=== PATIENT | male | born 1955 | race Caucasian/White ===

== ENCOUNTER 2023-03-27 09:30 | Inpatient (IN) | payer MEDICARE ==
[~2023-03-27] VITALS: Ht 175.3 cm; Wt 76.2 kg
[2023-03-27] MEDS ORDERED: IV NS 0.9% 1,000 ML BAG IV ONE (10:00)
[2023-03-27 10:21] LABS: HEMOGLOBIN 12.6 g/dL (13.5-17.5)
[2023-03-27 10:23] LABS: BASOPHILS # (AUTO) 0.3 K/uL (0.0-0.2); BASOPHILS % (AUTO) 3.4 % (0.0-2.0); EOSINOPHILS # (AUTO) 0.1 K/uL (0.0-0.7); EOSINOPHILS % (AUTO) 0.9 % (0.0-6.0); HEMATOCRIT 40 % (39-51); LYMPHOCYTES # (AUTO) 0.4 K/uL (0.8-4.8); LYMPHOCYTES % (AUTO) 4.4 % (20.0-44.0); MEAN CORPUSCULAR HEMOGLOBIN 24 PG (26.0-33.0); MEAN CORPUSCULAR HGB CONC 32 g/dl (31.0-36.0); MEAN CORPUSCULAR VOLUME 75 fL (80-96); MONOCYTES # (AUTO) 0.9 K/uL (0.1-1.30); MONOCYTES % (AUTO) 11.5 % (2.0-12.0); NEUTROPHILS # (AUTO) 6.5 K/uL (1.8-8.9); NEUTROPHILS % (AUTO) 79.8 % (43.0-81.0); PLATELET COUNT (AUTO) 270 K/uL (150-450); RED BLOOD CELL COUNT(AUTO) 5.27 MIL/uL (4.5-6.0); RED CELL DISTRIBUTION WIDTH 17.7 % (11.5-15.0); WHITE BLOOD COUNT (AUTO) 8.2 K/uL (4.3-11.0)
[2023-03-27 10:30] LABS: ALANINE AMINOTRANSFERASE 44 U/L (12-78); ALBUMIN 3.7 g/dL (3.4-5.0); ALKALINE PHOSPHATASE 69 U/L (46-116); ASPARTATE AMINOTRANSFERASE 42 U/L (15-37); BILIRUBIN,DIRECT 0.2 mg/dL (0.0-0.2); BILIRUBIN,TOTAL 0.5 mg/dL (0.2-1.0); CALCIUM, SERUM 9.5 mg/dL (8.5-10.1); CARBON DIOXIDE 28 mmol/L (21-32); CHLORIDE 105 mmol/L (98-107); CREATININE 0.8 mg/dL (0.6-1.3); GLUCOSE 108 mg/dL (74-106); LIPASE 131 U/L (73-393); POTASSIUM 4.4 mmol/L (3.5-5.1); SODIUM SERUM 141 mmol/L (136-145); TOTAL PROTEIN, SERUM 7.6 g/dL (6.4-8.2); UREA NITROGEN, BLOOD 23 mg/dL (7-18)
[2023-03-27] MEDS ORDERED: LORAZEPAM INJ 2 MG/ML VIAL ONE ×2 (11:19→12:12)
[2023-03-27] MEDS ORDERED: LORAZEPAM INJ 2 MG/ML VIAL IV ONE ×2 (11:30→12:30)
[2023-03-27 11:57] LABS: APPEARANCE,URINE CLEAR (CLEAR); BILIRUBIN,URINE NEGATIVE (NEGATIVE); BLOOD, URINE NEGATIVE Ery/uL (NEGATIVE); COLOR,URINE YELLOW (YELLOW); KETONES,URINE TRACE mg/dL (NEGATIVE); LEUKOCYTE ESTERASE ,URINE NEGATIVE (NEGATIVE); NITRITE, URINE NEGATIVE (NEGATIVE); PROTEIN,URINE 2+ mg/dl (NEGATIVE); UGLUCOSE NEGATIVE (NEGATIVE); UROBILINOGEN,URINE 0.2 EU/dL (0.2)
[2023-03-27 12:11] LABS: ADD URINE CULTURE NO; BACTERIA,URINE None seen /HPF (None Seen); RBC,URINE 0-2 /HPF (0-2); WBC,URINE 0-2 /HPF (0-3)
[2023-03-27 12:12] LABS: SQUAMOUS EPITHELIAL CELL,UR Rare /HPF (None Seen)
[2023-03-27] MEDS ORDERED: HALOPERIDOL LACTATE INJ 5 MG/ML VIAL ONE (12:33)
[2023-03-27] MEDS ORDERED: diphenhydrAMINE HCL 50 MG/ML VIAL ONE (12:33)
[2023-03-27] MEDS ORDERED: diphenhydrAMINE HCL 50 MG/ML VIAL IV ONE (13:00)
[2023-03-27] MEDS ORDERED: HALOPERIDOL LACTATE INJ 5 MG/ML VIAL IV ONE (13:00)
[2023-03-27] MEDS ORDERED: Z GUARD REMEDY 4 OZ OINT TP PRN (22:30)
[2023-03-27] MEDS ORDERED: INSULIN REGULAR, HUMAN 100 UNIT/ML 3 ML VIAL SQ PRN (22:30)
[2023-03-27] MEDS ORDERED: ONDANSETRON HCL/PF 4 MG/2 ML VIAL IVP PRN (22:30)
[2023-03-27] MEDS ORDERED: DEXTROSE 50%-WATER 50 ML DISP.SYRIN IV PRN (22:30)
[2023-03-27] MEDS ORDERED: MAGNESIUM HYDROXIDE 30 ML UDC PO PRN (22:30)
[2023-03-27 23:00] VITALS: BP 123/66; O2SAT 100
[2023-03-27] MEDS: IV 1/2NS 1000 ML 1,000 ML IV PRN (23:04)
[2023-03-27] MEDS: methylPREDNISolone SOD SUCC 40 MG/ML VIAL IV SCH (23:05)
[2023-03-27] MEDS: ENOXAPARIN SODIUM 40 MG/0.4 ML DISP.SYRIN SQ SCH (23:06)
[2023-03-27] MEDS: ALBUTEROL FS 2.5 MG/3 ML VIAL.NEB NEB SCH (23:33)
[2023-03-27] MEDS: IPRATROPIUM NEB FS 0.5 MG/2.5 ML AMPUL.NEB NEB SCH (23:33)
[2023-03-28] VITALS (75 sets, daily range): BP systolic 79–144; BP diastolic 49–79; TEMP 97.9–100.4; O2SAT 88–100
[2023-03-28] MEDS: ALBUTEROL FS 2.5 MG/3 ML VIAL.NEB NEB SCH ×4 (01:46→19:34)
[2023-03-28] MEDS: IPRATROPIUM NEB FS 0.5 MG/2.5 ML AMPUL.NEB NEB SCH ×4 (01:46→19:34)
[2023-03-28] MEDS: methylPREDNISolone SOD SUCC 40 MG/ML VIAL IV SCH ×3 (04:58→20:58)
[2023-03-28] MEDS ORDERED: PROPOFOL 100 ML IV PRN (05:00)
[2023-03-28] MEDS: NOREPINEPHRINE 8 MG in IV NS 0.9% 242 ML IV PRN (06:31)
[2023-03-28] MEDS: PANTOPRAZOLE 40 MG TABLET.DR PO SCH (07:30)
[2023-03-28] MEDS ORDERED: BLOOD SUGAR DIAGNOSTIC 1 EACH STRIP IN SCH (07:30)
[2023-03-28 08:08] LABS: BASOPHILS % (AUTO) 0.4 % (0.0-2.0); HEMATOCRIT 39 % (39-51); HEMOGLOBIN 11.9 g/dL (13.5-17.5); LYMPHOCYTES # (AUTO) 0.6 K/uL (0.8-4.8); LYMPHOCYTES % (AUTO) 5.9 % (20.0-44.0); MEAN CORPUSCULAR HEMOGLOBIN 24 PG (26.0-33.0); MEAN CORPUSCULAR HGB CONC 30 g/dl (31.0-36.0); MEAN CORPUSCULAR VOLUME 79 fL (80-96); MONOCYTES # (AUTO) 0.6 K/uL (0.1-1.30); MONOCYTES % (AUTO) 6.4 % (2.0-12.0); NEUTROPHILS # (AUTO) 8.5 K/uL (1.8-8.9); NEUTROPHILS % (AUTO) 87.3 % (43.0-81.0); PLATELET COUNT (AUTO) 255 K/uL (150-450); RED BLOOD CELL COUNT(AUTO) 4.99 MIL/uL (4.5-6.0); RED CELL DISTRIBUTION WIDTH 18.1 % (11.5-15.0); WHITE BLOOD COUNT (AUTO) 9.7 K/uL (4.3-11.0)
[2023-03-28 08:20] LABS: CALCIUM, SERUM 8.7 mg/dL (8.5-10.1); CREATININE 0.9 mg/dL (0.6-1.3); PHOSPHORUS 5.3 mg/dL (2.5-4.9); POTASSIUM 5.1 mmol/L (3.5-5.1)
[2023-03-28 08:28] LABS: IRON, SERUM 72 ug/dl (50-175); TOTAL IRON BINDING CAPACITY 318 ug/dl (250-450)
[2023-03-28] MEDS ORDERED: DEXTROSE 50%-WATER 50 ML DISP.SYRIN IV PRN (08:30)
[2023-03-28 08:35] LABS: THYROID STIMULATING HORMONE 0.311 uIU/mL (0.358-3.74)
[2023-03-28] MEDS: PROPOFOL 100 ML IV PRN ×6 (08:53→22:27)
[2023-03-28] MEDS ORDERED: METF-440 PO (09:52)
[2023-03-28] MEDS ORDERED: GLIP5TAB13 PO (09:52)
[2023-03-28] MEDS ORDERED: TIOT18CA3 IH (09:52)
[2023-03-28] MEDS ORDERED: SIMV10TA98 PO (09:52)
[2023-03-28 11:18] LABS: AMPHETAMINE, URINE NEGATIVE (NEGATIVE); BARBITURATE, URINE NEGATIVE (NEGATIVE); BENZODIAZEPINE, URINE NEGATIVE (NEGATIVE); CANNABINOID, URINE NEGATIVE (NEGATIVE); COCCAINE, URINE NEGATIVE (NEGATIVE); OPIATE, URINE NEGATIVE (NEGATIVE); PHENCYCLIDINE SCREEN,URINE NEGATIVE (NEGATIVE)
[2023-03-28] MEDS: BLOOD SUGAR DIAGNOSTIC 1 EACH STRIP IN SCH ×3 (12:10→23:36)
[2023-03-28] MEDS: INSULIN REGULAR, HUMAN 100 UNIT/ML 3 ML VIAL SQ PRN ×2 (12:16→23:29)
[2023-03-28] MEDS ORDERED: ETOMIDATE 2 MG/ML VIAL IV ONE (13:43)
[2023-03-28] MEDS ORDERED: SUCCINYLCHOLINE CHLORIDE 20 MG/ML VIAL IV ONE (13:43)
[2023-03-28] MEDS: IV 1/2NS 1000 ML 1,000 ML IV PRN (14:38)
[2023-03-28] MEDS: ENOXAPARIN SODIUM 40 MG/0.4 ML DISP.SYRIN SQ SCH (20:59)
[2023-03-28 22:04] LABS: ABG BASE EXCESS -1.7 mmol/L; ABG PCO2 72.1 mmHg (35.0-45.0); ABG PH 7.207 (7.350-7.450); ABG TOTAL HEMOGLOBIN 13.6 G/dL (13.5-18.0); MetHb 0.3 % (0.0-1.5); O2Hb 81.2 % (94.0-97.0); SITE, ABG Left Radial; VENT MODE, BG 4 L 02
[2023-03-28 22:14] LABS: ABG BASE EXCESS -1.9 mmol/L; ABG OXYGEN SATURATION 92.8 % (92.0-98.5); ABG PH 6.994 (7.350-7.450); ABG PO2 79.9 mmHg (75.0-100.0); ABG TOTAL HEMOGLOBIN 13.6 G/dL (13.5-18.0); COHb 2.4 % (0.5-1.5); MetHb 0.3 % (0.0-1.5); O2Hb 90.3 % (94.0-97.0); SITE, ABG Right Radial
[2023-03-28 22:15] LABS: ABG BASE EXCESS -1.7 mmol/L; ABG OXYGEN SATURATION 97.5 % (92.0-98.5); ABG PCO2 77.9 mmHg (35.0-45.0); ABG PO2 110.8 mmHg (75.0-100.0); ABG TOTAL HEMOGLOBIN 12.8 G/dL (13.5-18.0); AaDO2 231.3 mmHg; COHb 1.5 % (0.5-1.5); MetHb 0.3 % (0.0-1.5); O2Hb 95.7 % (94.0-97.0); SITE, ABG Left Brachial
[2023-03-28 22:17] LABS: ABG BASE EXCESS -1.2 mmol/L; ABG OXYGEN SATURATION 97.5 % (92.0-98.5); ABG PCO2 75.5 mmHg (35.0-45.0); ABG PH 7.197 (7.350-7.450); ABG PO2 108.6 mmHg (75.0-100.0); ABG TOTAL HEMOGLOBIN 12.8 G/dL (13.5-18.0); AaDO2 236.2 mmHg; COHb 1.8 % (0.5-1.5); MetHb 0.3 % (0.0-1.5); O2Hb 95.5 % (94.0-97.0); PEEP,BG 5 cm H2O; SITE, ABG Right Radial; VT, ABG 450 mL
[2023-03-29] VITALS (64 sets, daily range): BP systolic 106–147; BP diastolic 67–81; TEMP 98.8–99.7; O2SAT 95–100
[2023-03-29] MEDS: NOREPINEPHRINE 8 MG in IV NS 0.9% 242 ML IV PRN (00:12)
[2023-03-29 01:10] LABS: HIV-1 p24 ANTIGEN NON REACTIVE (NONREACTIVE); HIV-1/2 ANTIBODY NON REACTIVE (NONREACTIVE)
[2023-03-29] MEDS: PROPOFOL 100 ML IV PRN ×7 (01:44→21:32)
[2023-03-29] MEDS: IPRATROPIUM NEB FS 0.5 MG/2.5 ML AMPUL.NEB NEB SCH ×4 (01:54→20:15)
[2023-03-29] MEDS: ALBUTEROL FS 2.5 MG/3 ML VIAL.NEB NEB SCH ×4 (01:54→20:15)
[2023-03-29] MEDS: IV 1/2NS 1000 ML 1,000 ML IV PRN ×2 (03:37→16:53)
[2023-03-29 04:55] LABS: HEMATOCRIT 37 % (39-51); HEMOGLOBIN 11.5 g/dL (13.5-17.5); LYMPHOCYTES # (AUTO) 0.7 K/uL (0.8-4.8); LYMPHOCYTES % (AUTO) 6.2 % (20.0-44.0); MEAN CORPUSCULAR HEMOGLOBIN 24 PG (26.0-33.0); MEAN CORPUSCULAR HGB CONC 31 g/dl (31.0-36.0); MEAN CORPUSCULAR VOLUME 77 fL (80-96); MONOCYTES # (AUTO) 1.3 K/uL (0.1-1.30); MONOCYTES % (AUTO) 11.9 % (2.0-12.0); NEUTROPHILS # (AUTO) 8.7 K/uL (1.8-8.9); NEUTROPHILS % (AUTO) 81.9 % (43.0-81.0); PLATELET COUNT (AUTO) 236 K/uL (150-450); RED BLOOD CELL COUNT(AUTO) 4.81 MIL/uL (4.5-6.0); RED CELL DISTRIBUTION WIDTH 17.7 % (11.5-15.0); WHITE BLOOD COUNT (AUTO) 10.6 K/uL (4.3-11.0)
[2023-03-29 05:17] LABS: CALCIUM, SERUM 8.8 mg/dL (8.5-10.1); CREATININE 0.8 mg/dL (0.6-1.3); POTASSIUM 4.5 mmol/L (3.5-5.1)
[2023-03-29] MEDS: methylPREDNISolone SOD SUCC 40 MG/ML VIAL IV SCH ×3 (05:18→20:21)
[2023-03-29] MEDS: BLOOD SUGAR DIAGNOSTIC 1 EACH STRIP IN SCH ×3 (05:57→17:41)
[2023-03-29] MEDS: INSULIN REGULAR, HUMAN 100 UNIT/ML 3 ML VIAL SQ PRN ×2 (05:58→12:30)
[2023-03-29] MEDS: PANTOPRAZOLE 40 MG TABLET.DR PO SCH (07:10)
[2023-03-29 08:13] LABS: ABG BASE EXCESS 4.5 mmol/L; ABG OXYGEN SATURATION 95.1 % (92.0-98.5); ABG PCO2 54.6 mmHg (35.0-45.0); ABG PH 7.371 (7.350-7.450); ABG PO2 80.9 mmHg (75.0-100.0); ABG TOTAL HEMOGLOBIN 12.4 G/dL (13.5-18.0); AaDO2 141.5 mmHg; COHb 1.3 % (0.5-1.5); MetHb 0.3 % (0.0-1.5); O2Hb 93.6 % (94.0-97.0); PEEP,BG 5 cm H2O; SITE, ABG Right Radial; VT, ABG 500 mL
[2023-03-29] MEDS ORDERED: GLUCERNA 1.2 1,000 ML BOTTLE NG PRN (10:00)
[2023-03-29] MEDS: ENOXAPARIN SODIUM 40 MG/0.4 ML DISP.SYRIN SQ SCH (20:21)
[2023-03-30] VITALS (42 sets, daily range): BP systolic 104–160; BP diastolic 53–93; TEMP 98.1–98.7; O2SAT 85–100
[2023-03-30] MEDS: BLOOD SUGAR DIAGNOSTIC 1 EACH STRIP IN SCH ×4 (00:57→17:10)
[2023-03-30] MEDS: INSULIN REGULAR, HUMAN 100 UNIT/ML 3 ML VIAL SQ PRN ×3 (00:58→12:13)
[2023-03-30] MEDS: PROPOFOL 100 ML IV PRN ×3 (01:09→07:13)
[2023-03-30] MEDS: IPRATROPIUM NEB FS 0.5 MG/2.5 ML AMPUL.NEB NEB SCH ×4 (01:44→19:32)
[2023-03-30] MEDS: ALBUTEROL FS 2.5 MG/3 ML VIAL.NEB NEB SCH ×4 (01:44→19:32)
[2023-03-30 03:07] LABS: HEPATITIS B CORE AB, IgM Negative (Negative)
[2023-03-30 03:46] LABS: BASOPHILS % (AUTO) 0.1 % (0.0-2.0); HEMATOCRIT 36 % (39-51); HEMOGLOBIN 11.2 g/dL (13.5-17.5); LYMPHOCYTES # (AUTO) 0.5 K/uL (0.8-4.8); LYMPHOCYTES % (AUTO) 3.7 % (20.0-44.0); MEAN CORPUSCULAR HEMOGLOBIN 24 PG (26.0-33.0); MEAN CORPUSCULAR HGB CONC 31 g/dl (31.0-36.0); MEAN CORPUSCULAR VOLUME 76 fL (80-96); MONOCYTES # (AUTO) 1.2 K/uL (0.1-1.30); MONOCYTES % (AUTO) 8.8 % (2.0-12.0); NEUTROPHILS # (AUTO) 12.4 K/uL (1.8-8.9); NEUTROPHILS % (AUTO) 87.4 % (43.0-81.0); PLATELET COUNT (AUTO) 191 K/uL (150-450); RED CELL DISTRIBUTION WIDTH 17.9 % (11.5-15.0); WHITE BLOOD COUNT (AUTO) 14.2 K/uL (4.3-11.0)
[2023-03-30 03:59] LABS: CREATININE 0.7 mg/dL (0.6-1.3); POTASSIUM 4.5 mmol/L (3.5-5.1)
[2023-03-30] MEDS: methylPREDNISolone SOD SUCC 40 MG/ML VIAL IV SCH ×3 (04:42→20:30)
[2023-03-30] MEDS: IV 1/2NS 1000 ML 1,000 ML IV PRN ×2 (06:21→18:48)
[2023-03-30] MEDS ORDERED: DC PROPOFOL WHEN EXTUBATED XX PRN (09:00)
[2023-03-30] MEDS: PANTOPRAZOLE 40 MG TABLET.DR PO SCH (09:04)
[2023-03-30 09:20] LABS: ABG OXYGEN SATURATION 93.8 % (92.0-98.5); ABG PCO2 51.2 mmHg (35.0-45.0); ABG PH 7.447 (7.350-7.450); ABG PO2 70.4 mmHg (75.0-100.0); ABG TOTAL HEMOGLOBIN 12.4 G/dL (13.5-18.0); AaDO2 155.9 mmHg; COHb 1.3 % (0.5-1.5); MetHb 0.3 % (0.0-1.5); O2Hb 92.3 % (94.0-97.0); SITE, ABG Right Radial
[2023-03-30 11:23] LABS: ABG BASE EXCESS 6.7 mmol/L; ABG OXYGEN SATURATION 90.8 % (92.0-98.5); ABG PCO2 45.9 mmHg (35.0-45.0); ABG PH 7.455 (7.350-7.450); ABG PO2 59.1 mmHg (75.0-100.0); ABG TOTAL HEMOGLOBIN 12.6 G/dL (13.5-18.0); COHb 1.3 % (0.5-1.5); MetHb 0.3 % (0.0-1.5); O2Hb 89.3 % (94.0-97.0); SITE, ABG Right Radial; VENT MODE, BG HFNC 40L 100%
[2023-03-30] MEDS: ENOXAPARIN SODIUM 40 MG/0.4 ML DISP.SYRIN SQ SCH (20:29)
[2023-03-30] MEDS: ACETAMINOPHEN 325 MG TABLET PO PRN (21:24)
[2023-03-30] MEDS: MORPHINE SULFATE INJ 2 MG/ML DISP.SYRIN IV PRN (23:44)
[2023-03-31] VITALS (31 sets, daily range): BP systolic 100–142; BP diastolic 60–88; TEMP 98.2–101; O2SAT 83–100
[2023-03-31] MEDS: LORAZEPAM INJ 2 MG/ML VIAL IV PRN ×2 (00:35→13:52)
[2023-03-31] MEDS: INSULIN REGULAR, HUMAN 100 UNIT/ML 3 ML VIAL SQ PRN ×4 (00:58→18:05)
[2023-03-31] MEDS: BLOOD SUGAR DIAGNOSTIC 1 EACH STRIP IN SCH ×4 (00:58→18:03)
[2023-03-31] MEDS: IPRATROPIUM NEB FS 0.5 MG/2.5 ML AMPUL.NEB NEB SCH ×4 (01:54→20:26)
[2023-03-31] MEDS: ALBUTEROL FS 2.5 MG/3 ML VIAL.NEB NEB SCH ×4 (01:54→20:26)
[2023-03-31] MEDS: ACETAMINOPHEN 325 MG TABLET PO PRN (04:41)
[2023-03-31] MEDS: MORPHINE SULFATE INJ 2 MG/ML DISP.SYRIN IV PRN ×4 (04:41→16:33)
[2023-03-31] MEDS: methylPREDNISolone SOD SUCC 40 MG/ML VIAL IV SCH ×3 (05:11→21:06)
[2023-03-31 05:42] LABS: BASOPHILS % (AUTO) 0.2 % (0.0-2.0); CALCIUM, SERUM 9.1 mg/dL (8.5-10.1); CREATININE 0.5 mg/dL (0.6-1.3); HEMATOCRIT 37 % (39-51); HEMOGLOBIN 11.5 g/dL (13.5-17.5); LYMPHOCYTES # (AUTO) 0.8 K/uL (0.8-4.8); LYMPHOCYTES % (AUTO) 6.3 % (20.0-44.0); MEAN CORPUSCULAR HEMOGLOBIN 24 PG (26.0-33.0); MEAN CORPUSCULAR HGB CONC 31 g/dl (31.0-36.0); MEAN CORPUSCULAR VOLUME 76 fL (80-96); MONOCYTES # (AUTO) 1.3 K/uL (0.1-1.30); MONOCYTES % (AUTO) 10.4 % (2.0-12.0); NEUTROPHILS # (AUTO) 10.5 K/uL (1.8-8.9); NEUTROPHILS % (AUTO) 83.1 % (43.0-81.0); PLATELET COUNT (AUTO) 177 K/uL (150-450); POTASSIUM 4.2 mmol/L (3.5-5.1); RED BLOOD CELL COUNT(AUTO) 4.89 MIL/uL (4.5-6.0); RED CELL DISTRIBUTION WIDTH 18.3 % (11.5-15.0); WHITE BLOOD COUNT (AUTO) 12.6 K/uL (4.3-11.0)
[2023-03-31] MEDS: PANTOPRAZOLE 40 MG TABLET.DR PO SCH (07:30)
[2023-03-31 08:26] LABS: ABG BASE EXCESS 6.4 mmol/L; ABG OXYGEN SATURATION 86.2 % (92.0-98.5); ABG PCO2 40.4 mmHg (35.0-45.0); ABG PH 7.492 (7.350-7.450); ABG PO2 50.6 mmHg (75.0-100.0); ABG TOTAL HEMOGLOBIN 12.5 G/dL (13.5-18.0); AaDO2 101.4 mmHg; COHb 1.7 % (0.5-1.5); MetHb 0.3 % (0.0-1.5); O2Hb 84.5 % (94.0-97.0); SITE, ABG Right Brachial; VENT MODE, BG nasal cannula
[2023-03-31] MEDS: NICOTINE PATCH (21MG) 21 MG PATCH.TD24 TD SCH (09:06)
[2023-03-31] MEDS: IV 1/2NS 1000 ML 1,000 ML IV PRN (13:24)
[2023-03-31] MEDS: ENOXAPARIN SODIUM 40 MG/0.4 ML DISP.SYRIN SQ SCH (21:17)
[2023-04-01] VITALS (15 sets, daily range): BP systolic 106–142; BP diastolic 67–87; TEMP 97.7–99.1; O2SAT 94–100
[2023-04-01] MEDS: BLOOD SUGAR DIAGNOSTIC 1 EACH STRIP IN SCH (00:28)
[2023-04-01] MEDS: INSULIN REGULAR, HUMAN 100 UNIT/ML 3 ML VIAL SQ PRN (00:54)
[2023-04-01] MEDS: ALBUTEROL FS 2.5 MG/3 ML VIAL.NEB NEB SCH ×4 (01:44→20:16)
[2023-04-01] MEDS: IPRATROPIUM NEB FS 0.5 MG/2.5 ML AMPUL.NEB NEB SCH ×4 (01:44→20:16)
[2023-04-01] MEDS ORDERED: INSULIN REGULAR, HUMAN 100 UNIT/ML 3 ML VIAL SQ PRN (02:00)
[2023-04-01] MEDS ORDERED: DEXTROSE 50%-WATER 50 ML DISP.SYRIN IV PRN (02:00)
[2023-04-01] MEDS: IV 1/2NS 1000 ML 1,000 ML IV PRN ×2 (03:50→22:49)
[2023-04-01] MEDS: methylPREDNISolone SOD SUCC 40 MG/ML VIAL IV SCH ×3 (04:18→21:12)
[2023-04-01] MEDS: BLOOD SUGAR DIAGNOSTIC 1 EACH STRIP VI SCH ×4 (07:46→21:15)
[2023-04-01] MEDS: NICOTINE PATCH (21MG) 21 MG PATCH.TD24 TD SCH (08:51)
[2023-04-01] MEDS: PANTOPRAZOLE 40 MG TABLET.DR PO SCH (08:51)
[2023-04-01 08:59] LABS: BASOPHILS % (AUTO) 0.3 % (0.0-2.0); HEMATOCRIT 41 % (39-51); HEMOGLOBIN 12.7 g/dL (13.5-17.5); LYMPHOCYTES # (AUTO) 0.5 K/uL (0.8-4.8); LYMPHOCYTES % (AUTO) 3.9 % (20.0-44.0); MEAN CORPUSCULAR HEMOGLOBIN 24 PG (26.0-33.0); MEAN CORPUSCULAR HGB CONC 31 g/dl (31.0-36.0); MEAN CORPUSCULAR VOLUME 76 fL (80-96); MONOCYTES # (AUTO) 0.5 K/uL (0.1-1.30); MONOCYTES % (AUTO) 4.6 % (2.0-12.0); NEUTROPHILS # (AUTO) 10.9 K/uL (1.8-8.9); NEUTROPHILS % (AUTO) 91.2 % (43.0-81.0); PLATELET COUNT (AUTO) 201 K/uL (150-450); RED BLOOD CELL COUNT(AUTO) 5.39 MIL/uL (4.5-6.0); RED CELL DISTRIBUTION WIDTH 18.5 % (11.5-15.0)
[2023-04-01 10:20] LABS: CALCIUM, SERUM 9.4 mg/dL (8.5-10.1); CREATININE 0.7 mg/dL (0.6-1.3); POTASSIUM 4.5 mmol/L (3.5-5.1)
[2023-04-01] MEDS: *INSULIN REGULAR(HUMULIN R)HUM 100 UNIT/ML VIAL SQ PRN ×3 (11:32→21:16)
[2023-04-01] MEDS: MORPHINE SULFATE INJ 2 MG/ML DISP.SYRIN IV PRN (15:07)
[2023-04-01] MEDS: GLUCERNA SHAKE 237 ML CAN PO SCH (16:31)
[2023-04-01] MEDS: ENOXAPARIN SODIUM 40 MG/0.4 ML DISP.SYRIN SQ SCH (21:14)
[2023-04-02] VITALS: BP 120/78; TEMP 97.7; O2SAT 100
[2023-04-02] MEDS: ALBUTEROL FS 2.5 MG/3 ML VIAL.NEB NEB SCH ×3 (01:25→13:19)
[2023-04-02] MEDS: IPRATROPIUM NEB FS 0.5 MG/2.5 ML AMPUL.NEB NEB SCH ×3 (01:25→13:18)
[2023-04-02 04:00] VITALS: BP 113/75; TEMP 97.5; O2SAT 100
[2023-04-02] MEDS: methylPREDNISolone SOD SUCC 40 MG/ML VIAL IV SCH ×2 (04:48→12:23)
[2023-04-02 07:14] LABS: BASOPHILS % (AUTO) 0.3 % (0.0-2.0); HEMATOCRIT 42 % (39-51); HEMOGLOBIN 12.9 g/dL (13.5-17.5); LYMPHOCYTES # (AUTO) 0.4 K/uL (0.8-4.8); LYMPHOCYTES % (AUTO) 3.2 % (20.0-44.0); MEAN CORPUSCULAR HEMOGLOBIN 23 PG (26.0-33.0); MEAN CORPUSCULAR HGB CONC 31 g/dl (31.0-36.0); MEAN CORPUSCULAR VOLUME 76 fL (80-96); MONOCYTES # (AUTO) 0.7 K/uL (0.1-1.30); MONOCYTES % (AUTO) 5.1 % (2.0-12.0); NEUTROPHILS # (AUTO) 12.5 K/uL (1.8-8.9); NEUTROPHILS % (AUTO) 91.4 % (43.0-81.0); PLATELET COUNT (AUTO) 220 K/uL (150-450); RED BLOOD CELL COUNT(AUTO) 5.52 MIL/uL (4.5-6.0); RED CELL DISTRIBUTION WIDTH 18.6 % (11.5-15.0); WHITE BLOOD COUNT (AUTO) 13.7 K/uL (4.3-11.0)
[2023-04-02 07:49] LABS: CALCIUM, SERUM 9.4 mg/dL (8.5-10.1); CREATININE 0.5 mg/dL (0.6-1.3); POTASSIUM 4.4 mmol/L (3.5-5.1)
[2023-04-02 08:00] VITALS: BP 122/78; TEMP 98; O2SAT 100
[2023-04-02] MEDS: GLUCERNA SHAKE 237 ML CAN PO SCH ×2 (08:13→16:20)
[2023-04-02] MEDS: BLOOD SUGAR DIAGNOSTIC 1 EACH STRIP VI SCH ×3 (08:13→17:30)
[2023-04-02] MEDS: NICOTINE PATCH (21MG) 21 MG PATCH.TD24 TD SCH (09:08)
[2023-04-02] MEDS: PANTOPRAZOLE 40 MG TABLET.DR PO SCH (09:08)
[2023-04-02 12:00] VITALS: BP 118/74; TEMP 98; O2SAT 100
[2023-04-02] MEDS: *INSULIN REGULAR(HUMULIN R)HUM 100 UNIT/ML VIAL SQ PRN (12:26)
[2023-04-02 14:00] VITALS: BP 118/86; TEMP 98.7; O2SAT 100
[2023-04-02] MEDS ORDERED: GUAIFENESIN/CODEINE 10 ML UDC PO PRN (15:00)
[2023-04-02] MEDS: MORPHINE SULFATE INJ 2 MG/ML DISP.SYRIN IV PRN (15:16)
[2023-04-02 16:00] VITALS: BP 116/89; TEMP 98.5; O2SAT 100
== END 2023-04-02 20:00 | DRG 208 ==
LOC: EDBD 09:36 → ER 09:36 → ICU 21:47 → TELE1 03-31 10:31
PROVIDERS: ADMIT Nurse Practitioner Family
PROC: 5A09357 Assistance with Respiratory Ventilation, Less than 24 Consecutive Hours, Continuous Positive Airway Pressure (ICD-10-PCS; 2023-03-27)
PROC: 5A1945Z Respiratory Ventilation, 24-96 Consecutive Hours (ICD-10-PCS; principal; 2023-03-28)
PROC: 0BH17EZ Insertion of Endotracheal Airway into Trachea, Via Natural or Artificial Opening (ICD-10-PCS; 2023-03-28)
PROC: 05HB33Z Insertion of Infusion Device into Right Basilic Vein, Percutaneous Approach (ICD-10-PCS; 2023-03-28)
DX: J44.1 Chronic obstructive pulmonary disease with (acute) exacerbation (principal); G92.8 Other toxic encephalopathy; J96.21 Acute and chronic respiratory failure with hypoxia; J96.22 Acute and chronic respiratory failure with hypercapnia; R57.8 Other shock; M62.82 Rhabdomyolysis; I82.621 Acute embolism and thrombosis of deep veins of right upper extremity; Z20.822 Contact with and (suspected) exposure to COVID-19; E11.9 Type 2 diabetes mellitus without complications; J20.9 Acute bronchitis, unspecified; J44.0 Chronic obstructive pulmonary disease with (acute) lower respiratory infection; R79.89 Other specified abnormal findings of blood chemistry; D50.9 Iron deficiency anemia, unspecified; E78.5 Hyperlipidemia, unspecified; I10 Essential (primary) hypertension; L89.156 Pressure-induced deep tissue damage of sacral region; Z53.20 Procedure and treatment not carried out because of patient's decision for unspecified reasons; Z87.891 Personal history of nicotine dependence
CPT/HCPCS: 31720; 36410; 36415; 36600; 70450-TC; 71045-TC; 80048-TC; 80061-TC; 80076-TC; 81001; 82140-TC; 82550-TC; 82553; 82728-TC; 82803-TC; 82962-TC; 83540-TC; 83690-TC; 83735-TC; 83880; 84100-TC; 84443-TC; 84478-TC; 84484-TC; 85025-TC; 86705; 86803; 87081-TC; 87086-TC; 87340; 87806; 92526; 92611-TC; 93971-TC; 94002-TC; 94003-TC; 94660; 94799-TC; 97110-TC; 97116-TC; 97530-TC; A4223; G0378; G0480; J0330; J1200; J1630; J1650; J1815; J2060; J2270; J2920; J3490; J7030; J7050

== ENCOUNTER 2023-04-15 21:34 | Inpatient (IN) | payer MEDICARE ==
[~2023-04-15] VITALS: Ht 177.8 cm; Wt 70.3 kg
[~2023-04-15 21:34] MED LIST: GLIP5TAB13 PO; METF-440 PO; SIMV10TA98 PO; TIOT18CA3 IH
[2023-04-15 22:30] LABS: BASOPHILS # (AUTO) 0.1 K/uL (0.0-0.2); BASOPHILS % (AUTO) 0.5 % (0.0-2.0); EOSINOPHILS # (AUTO) 0.1 K/uL (0.0-0.7); HEMATOCRIT 39 % (39-51); HEMOGLOBIN 12.1 g/dL (13.5-17.5); LYMPHOCYTES # (AUTO) 0.8 K/uL (0.8-4.8); LYMPHOCYTES % (AUTO) 6.2 % (20.0-44.0); MEAN CORPUSCULAR HEMOGLOBIN 24 PG (26.0-33.0); MEAN CORPUSCULAR HGB CONC 31 g/dl (31.0-36.0); MEAN CORPUSCULAR VOLUME 76 fL (80-96); MONOCYTES # (AUTO) 1.1 K/uL (0.1-1.30); MONOCYTES % (AUTO) 8.5 % (2.0-12.0); NEUTROPHILS # (AUTO) 11.4 K/uL (1.8-8.9); NEUTROPHILS % (AUTO) 83.8 % (43.0-81.0); PLATELET COUNT (AUTO) 500 K/uL (150-450); RED BLOOD CELL COUNT(AUTO) 5.05 MIL/uL (4.5-6.0); WHITE BLOOD COUNT (AUTO) 13.5 K/uL (4.3-11.0)
[2023-04-15 22:32] LABS: APPEARANCE,URINE CLOUDY (CLEAR); BILIRUBIN,URINE NEGATIVE (NEGATIVE); BLOOD, URINE 2+ Ery/uL (NEGATIVE); COLOR,URINE YELLOW (YELLOW); KETONES,URINE NEGATIVE (NEGATIVE); LEUKOCYTE ESTERASE ,URINE 3+ (NEGATIVE); NITRITE, URINE POSITIVE (NEGATIVE); PH,URINE 5.5 (5.0-8.0); PROTEIN,URINE TRACE mg/dl (NEGATIVE); UGLUCOSE NEGATIVE (NEGATIVE); UROBILINOGEN,URINE 0.2 EU/dL (0.2)
[2023-04-15] MEDS ORDERED: TAMSULOSIN 0.4 MG CAP.SR.24H PO ONE (23:00)
[2023-04-15] MEDS ORDERED: TAMSULOSIN 0.4 MG CAP.SR.24H ONE (23:04)
[2023-04-15 23:14] LABS: ADD URINE CULTURE YES; BACTERIA,URINE 3+ /HPF (None Seen); MUCUS,URINE Few /LPF (None Seen); SQUAMOUS EPITHELIAL CELL,UR None Seen /HPF (None Seen)
[2023-04-15 23:30] LABS: CALCIUM, SERUM 9.3 mg/dL (8.5-10.1); CREATININE 5.9 mg/dL (0.6-1.3)
[2023-04-15 23:43] LABS: POTASSIUM 6.7 mmol/L (3.5-5.1)
[2023-04-16] MEDS ORDERED: INSULIN REGULAR, HUMAN 100 UNIT/ML 10 ML VIAL IV ONE
[2023-04-16] MEDS ORDERED: FUROSEMIDE 40 MG/4 ML VIAL IV ONE
[2023-04-16] MEDS ORDERED: SODIUM POLYSTYRENE SULFONATE 15 G/60 ML BOTTLE PO ONE
[2023-04-16] MEDS ORDERED: SODIUM BICARBONATE SYR 50 MEQ/50 ML DISP.SYRIN IV ONE
[2023-04-16] MEDS ORDERED: DEXTROSE 50%-WATER 50 ML DISP.SYRIN IV ONE ×2
[2023-04-16] MEDS ORDERED: CIPROFLOXACIN HCL 250 MG TABLET PO ONE
[2023-04-16] MEDS ORDERED: CEFTRIAXONE 1GM BAG (ER ONLY) 1 GM/50 ML PIGGYBACK IV ONE
[2023-04-16] MEDS ORDERED: SODIUM POLYSTYRENE SULFONATE 15 G/60 ML BOTTLE ONE (00:06)
[2023-04-16] MEDS ORDERED: FUROSEMIDE 20 MG/2 ML VIAL ONE (00:06)
[2023-04-16] MEDS ORDERED: CEFTRIAXONE 1GM BAG (ER ONLY) 50 ML IV ONE (00:06)
[2023-04-16] MEDS ORDERED: INSULIN REGULAR, HUMAN 100 UNIT/ML 10 ML VIAL ONE (00:07)
[2023-04-16] MEDS ORDERED: DEXTROSE 50%-WATER 50 ML DISP.SYRIN ONE (00:07)
[2023-04-16] MEDS ORDERED: SODIUM BICARBONATE SYR 50 MEQ/50 ML DISP.SYRIN ONE (00:07)
[2023-04-16] MEDS ORDERED: MORPHINE SULFATE INJ 2 MG/ML DISP.SYRIN IV PRN (00:30)
[2023-04-16] MEDS ORDERED: Z GUARD REMEDY 4 OZ OINT TP PRN (00:30)
[2023-04-16] MEDS ORDERED: TEMAZEPAM 15 MG CAPSULE PO PRN (00:30)
[2023-04-16] MEDS ORDERED: MAGNESIUM HYDROXIDE 30 ML UDC PO PRN (00:30)
[2023-04-16] MEDS ORDERED: ACETAMINOPHEN 325 MG TABLET PO PRN (00:30)
[2023-04-16] MEDS ORDERED: MAG HYDROX/AL HYDROX/SIMETH 30 ML UDC PO PRN (00:30)
[2023-04-16] MEDS ORDERED: ONDANSETRON HCL/PF 4 MG/2 ML VIAL IVP PRN (00:30)
[2023-04-16] MEDS ORDERED: IV NS 0.9% 1,000 ML BAG IV ONE (02:30)
[2023-04-16 03:40] VITALS: BP_SYST 115; BP_DIAS 30; BP_DIAS 70; TEMP 98.1; O2SAT 97
[2023-04-16 07:24] LABS: CALCIUM, SERUM 8.9 mg/dL (8.5-10.1); CREATININE 3.1 mg/dL (0.6-1.3); POTASSIUM 4.4 mmol/L (3.5-5.1)
[2023-04-16] MEDS: PANTOPRAZOLE 40 MG TABLET.DR PO SCH (08:45)
[2023-04-16 08:49] VITALS: BP 110/72; TEMP 98.4; O2SAT 94
[2023-04-16] MEDS ORDERED: TAMS-12 PO (09:13)
[2023-04-16] MEDS ORDERED: ALBU18HF2 IH (09:13)
[2023-04-16] MEDS ORDERED: LISI-768 PO (09:13)
[2023-04-16] MEDS ORDERED: NICO-676 TD (09:13)
[2023-04-16] MEDS ORDERED: FLUT1DIS3 IH (09:13)
[2023-04-16] MEDS ORDERED: ASPI-1169 PO (09:13)
[2023-04-16] MEDS: DAKINS QUARTER STRENGTH (0.125%) 480 ML BOTTLE TOP SCH (09:24)
[2023-04-16] MEDS ORDERED: SILVER NITRATE APPLICATOR 1 EA BOX TP PRN (10:00)
[2023-04-16] MEDS ORDERED: LIDOCAINE 1%-EPI 1:100,000 20 ML VIAL TP ONE (10:00)
[2023-04-16] MEDS ORDERED: SILVER NITRATE APPLICATOR 1 EA BOX TP SCH (10:00)
[2023-04-16 12:30] LABS: CALCIUM, SERUM 8.8 mg/dL (8.5-10.1); POTASSIUM 4.1 mmol/L (3.5-5.1)
[2023-04-16] MEDS ORDERED: TAMSULOSIN 0.4 MG CAP.SR.24H PO SCH (13:00)
[2023-04-16] MEDS ORDERED: DEXTROSE 50%-WATER 50 ML DISP.SYRIN IV PRN (13:00)
[2023-04-16] MEDS ORDERED: ALBUTEROL FS 2.5 MG/3 ML VIAL.NEB NEB PRN (13:00)
[2023-04-16] MEDS ORDERED: IV NS 0.9% 1,000 ML IV ONE (14:30)
[2023-04-16 16:35] VITALS: BP 94/63; TEMP 98.3; O2SAT 98
[2023-04-16] MEDS: BLOOD SUGAR DIAGNOSTIC 1 EACH STRIP IN SCH ×2 (16:58→22:12)
[2023-04-16] MEDS: ATORVASTATIN 10 MG TABLET PO SCH (17:25)
[2023-04-16] MEDS: INSULIN REGULAR, HUMAN 100 UNIT/ML 3 ML VIAL SQ PRN (17:26)
[2023-04-16] MEDS: HYDROCODONE/APAP 5/325MG TABLET PO PRN (19:44)
[2023-04-16 20:00] VITALS: BP 104/64; TEMP 98; O2SAT 98
[2023-04-16] MEDS: CEFTRIAXONE 1 G in IV D5W 50 ML IV SCH (20:23)
[2023-04-16] MEDS: TERAZOSIN HCL 1 MG CAPSULE PO SCH (22:00)
[2023-04-17] VITALS: BP 116/66; TEMP 98.2; O2SAT 97
[2023-04-17 04:00] VITALS: BP 122/71; TEMP 97.9; O2SAT 96
[2023-04-17] MEDS: BLOOD SUGAR DIAGNOSTIC 1 EACH STRIP IN SCH ×4 (06:12→21:37)
[2023-04-17 07:37] LABS: BASOPHILS # (AUTO) 0.1 K/uL (0.0-0.2); BASOPHILS % (AUTO) 0.9 % (0.0-2.0); EOSINOPHILS # (AUTO) 0.2 K/uL (0.0-0.7); EOSINOPHILS % (AUTO) 2.7 % (0.0-6.0); HEMATOCRIT 40 % (39-51); HEMOGLOBIN 12.5 g/dL (13.5-17.5); LYMPHOCYTES # (AUTO) 1.3 K/uL (0.8-4.8); LYMPHOCYTES % (AUTO) 17.3 % (20.0-44.0); MEAN CORPUSCULAR HEMOGLOBIN 24 PG (26.0-33.0); MEAN CORPUSCULAR HGB CONC 31 g/dl (31.0-36.0); MEAN CORPUSCULAR VOLUME 78 fL (80-96); MONOCYTES # (AUTO) 0.9 K/uL (0.1-1.30); MONOCYTES % (AUTO) 12.7 % (2.0-12.0); NEUTROPHILS # (AUTO) 4.9 K/uL (1.8-8.9); NEUTROPHILS % (AUTO) 66.4 % (43.0-81.0); PLATELET COUNT (AUTO) 452 K/uL (150-450); RED BLOOD CELL COUNT(AUTO) 5.11 MIL/uL (4.5-6.0); RED CELL DISTRIBUTION WIDTH 21.5 % (11.5-15.0); WHITE BLOOD COUNT (AUTO) 7.5 K/uL (4.3-11.0)
[2023-04-17] MEDS: PANTOPRAZOLE 40 MG TABLET.DR PO SCH (07:57)
[2023-04-17 08:00] VITALS: BP 132/88; TEMP 97.5; O2SAT 97
[2023-04-17 08:05] LABS: CALCIUM, SERUM 9.2 mg/dL (8.5-10.1); CREATININE 0.8 mg/dL (0.6-1.3); PHOSPHORUS 3.2 mg/dL (2.5-4.9); POTASSIUM 4.4 mmol/L (3.5-5.1)
[2023-04-17 08:22] LABS: THYROID STIMULATING HORMONE 3.076 uIU/mL (0.358-3.74)
[2023-04-17] MEDS: LISINOPRIL (5MG) 5 MG TABLET PO SCH (08:57)
[2023-04-17] MEDS: NICOTINE PATCH (14MG) 14 MG PATCH.TD24 TD SCH (08:58)
[2023-04-17] MEDS: FLUTICASONE/VILANTEROL 1 EACH BLST.W.DEV IH SCH (09:19)
[2023-04-17] MEDS: DAKINS QUARTER STRENGTH (0.125%) 480 ML BOTTLE TOP SCH (09:54)
[2023-04-17 12:00] VITALS: BP 122/84; TEMP 98.6; O2SAT 98
[2023-04-17] MEDS: PROSOURCE / PROSTAT (PYXIS) 30 ML UDC PO SCH ×2 (14:09→17:09)
[2023-04-17 16:00] VITALS: BP 110/66; TEMP 99; O2SAT 99
[2023-04-17] MEDS: ARGININE/GLUTAMINE/CALCIUM BMB 1 EACH POWD.PACK PO SCH (17:09)
[2023-04-17] MEDS: ATORVASTATIN 10 MG TABLET PO SCH (17:09)
[2023-04-17] MEDS: INSULIN REGULAR, HUMAN 100 UNIT/ML 3 ML VIAL SQ PRN (18:04)
[2023-04-17 20:00] VITALS: BP 156/89; TEMP 98.1; O2SAT 98
[2023-04-17] MEDS: CEFTRIAXONE 1 G in IV D5W 50 ML IV SCH (20:40)
[2023-04-17] MEDS: TERAZOSIN HCL 1 MG CAPSULE PO SCH (21:31)
[2023-04-17] MEDS: HYDROCODONE/APAP 5/325MG TABLET PO PRN (21:39)
[2023-04-18] VITALS: BP 94/55; TEMP 98.3; O2SAT 96
[2023-04-18 04:00] VITALS: BP 96/63; TEMP 97.7; O2SAT 96
[2023-04-18] MEDS: BLOOD SUGAR DIAGNOSTIC 1 EACH STRIP IN SCH ×4 (06:05→21:52)
[2023-04-18 06:30] LABS: BASOPHILS # (AUTO) 0.1 K/uL (0.0-0.2); BASOPHILS % (AUTO) 1.2 % (0.0-2.0); EOSINOPHILS # (AUTO) 0.4 K/uL (0.0-0.7); HEMATOCRIT 36 % (39-51); HEMOGLOBIN 11.5 g/dL (13.5-17.5); LYMPHOCYTES # (AUTO) 1.3 K/uL (0.8-4.8); LYMPHOCYTES % (AUTO) 16.9 % (20.0-44.0); MEAN CORPUSCULAR HEMOGLOBIN 25 PG (26.0-33.0); MEAN CORPUSCULAR HGB CONC 32 g/dl (31.0-36.0); MEAN CORPUSCULAR VOLUME 77 fL (80-96); MONOCYTES # (AUTO) 1.1 K/uL (0.1-1.30); MONOCYTES % (AUTO) 14.5 % (2.0-12.0); NEUTROPHILS # (AUTO) 4.9 K/uL (1.8-8.9); NEUTROPHILS % (AUTO) 62.4 % (43.0-81.0); PLATELET COUNT (AUTO) 422 K/uL (150-450); RED BLOOD CELL COUNT(AUTO) 4.59 MIL/uL (4.5-6.0); RED CELL DISTRIBUTION WIDTH 21.1 % (11.5-15.0); WHITE BLOOD COUNT (AUTO) 7.9 K/uL (4.3-11.0)
[2023-04-18 07:00] LABS: CALCIUM, SERUM 8.5 mg/dL (8.5-10.1); CREATININE 0.6 mg/dL (0.6-1.3); MAGNESIUM 1.7 mg/dL (1.8-2.4); PHOSPHORUS 2.6 mg/dL (2.5-4.9); POTASSIUM 3.8 mmol/L (3.5-5.1)
[2023-04-18 08:00] VITALS: BP 110/71; TEMP 97.5; O2SAT 99
[2023-04-18] MEDS: PANTOPRAZOLE 40 MG TABLET.DR PO SCH (08:21)
[2023-04-18] MEDS: FLUTICASONE/VILANTEROL 1 EACH BLST.W.DEV IH SCH (09:02)
[2023-04-18] MEDS: ASCORBIC ACID 500 MG TABLET PO SCH (09:03)
[2023-04-18] MEDS: ARGININE/GLUTAMINE/CALCIUM BMB 1 EACH POWD.PACK PO SCH ×2 (09:03→16:59)
[2023-04-18] MEDS: ZINC SULFATE 220 MG CAPSULE PO SCH (09:03)
[2023-04-18] MEDS: PROSOURCE / PROSTAT (PYXIS) 30 ML UDC PO SCH ×3 (09:03→16:59)
[2023-04-18] MEDS: MULTIVIT W/MINERALS 1 TAB TABLET PO SCH (09:03)
[2023-04-18] MEDS: DAKINS QUARTER STRENGTH (0.125%) 480 ML BOTTLE TOP SCH (09:06)
[2023-04-18] MEDS: NICOTINE PATCH (14MG) 14 MG PATCH.TD24 TD SCH (09:07)
[2023-04-18] MEDS: LISINOPRIL (5MG) 5 MG TABLET PO SCH (09:07)
[2023-04-18] MEDS ORDERED: MAGNESIUM OXIDE 400 MG TABLET PO ONE (10:00)
[2023-04-18 16:00] VITALS: BP 131/78; TEMP 97.3; O2SAT 99
[2023-04-18] MEDS: ATORVASTATIN 10 MG TABLET PO SCH (17:00)
[2023-04-18 20:00] VITALS: BP 109/58; TEMP 97.7; O2SAT 98
[2023-04-18] MEDS: CEFTRIAXONE 1 G in IV D5W 50 ML IV SCH (21:36)
[2023-04-18] MEDS: TERAZOSIN HCL 1 MG CAPSULE PO SCH (21:37)
[2023-04-18] MEDS: INSULIN REGULAR, HUMAN 100 UNIT/ML 3 ML VIAL SQ PRN (21:52)
[2023-04-19] MEDS ORDERED: TAMSULOSIN 0.4 MG CAP.SR.24H PO SCH (04:07)
[2023-04-19] MEDS: BLOOD SUGAR DIAGNOSTIC 1 EACH STRIP IN SCH ×2 (06:36→12:05)
[2023-04-19] MEDS: INSULIN REGULAR, HUMAN 100 UNIT/ML 3 ML VIAL SQ PRN (06:36)
[2023-04-19 06:41] LABS: BASOPHILS % (AUTO) 0.6 % (0.0-2.0); EOSINOPHILS # (AUTO) 0.4 K/uL (0.0-0.7); EOSINOPHILS % (AUTO) 5.7 % (0.0-6.0); HEMATOCRIT 38 % (39-51); HEMOGLOBIN 11.8 g/dL (13.5-17.5); LYMPHOCYTES # (AUTO) 1.5 K/uL (0.8-4.8); LYMPHOCYTES % (AUTO) 19.1 % (20.0-44.0); MEAN CORPUSCULAR HEMOGLOBIN 24 PG (26.0-33.0); MEAN CORPUSCULAR HGB CONC 32 g/dl (31.0-36.0); MEAN CORPUSCULAR VOLUME 77 fL (80-96); MONOCYTES # (AUTO) 1.1 K/uL (0.1-1.30); MONOCYTES % (AUTO) 14.2 % (2.0-12.0); NEUTROPHILS # (AUTO) 4.7 K/uL (1.8-8.9); NEUTROPHILS % (AUTO) 60.4 % (43.0-81.0); PLATELET COUNT (AUTO) 418 K/uL (150-450); RED BLOOD CELL COUNT(AUTO) 4.84 MIL/uL (4.5-6.0); RED CELL DISTRIBUTION WIDTH 20.9 % (11.5-15.0); WHITE BLOOD COUNT (AUTO) 7.8 K/uL (4.3-11.0)
[2023-04-19 06:55] LABS: CALCIUM, SERUM 8.7 mg/dL (8.5-10.1); CREATININE 0.7 mg/dL (0.6-1.3); MAGNESIUM 1.9 mg/dL (1.8-2.4); PHOSPHORUS 2.8 mg/dL (2.5-4.9); POTASSIUM 3.6 mmol/L (3.5-5.1)
[2023-04-19] MEDS: PANTOPRAZOLE 40 MG TABLET.DR PO SCH (07:29)
[2023-04-19 08:07] LABS: ANISOCYTOSIS 1+; PLATELET ESTIMATE ADEQUATE
[2023-04-19 08:08] LABS: OVALOCYTES 1+
[2023-04-19] MEDS: ARGININE/GLUTAMINE/CALCIUM BMB 1 EACH POWD.PACK PO SCH (08:19)
[2023-04-19] MEDS: FLUTICASONE/VILANTEROL 1 EACH BLST.W.DEV IH SCH (08:19)
[2023-04-19] MEDS: NICOTINE PATCH (14MG) 14 MG PATCH.TD24 TD SCH (08:20)
[2023-04-19] MEDS: MULTIVIT W/MINERALS 1 TAB TABLET PO SCH (08:20)
[2023-04-19] MEDS: ZINC SULFATE 220 MG CAPSULE PO SCH (08:20)
[2023-04-19] MEDS: ASCORBIC ACID 500 MG TABLET PO SCH (08:20)
[2023-04-19] MEDS: LISINOPRIL (5MG) 5 MG TABLET PO SCH (08:21)
[2023-04-19] MEDS: PROSOURCE / PROSTAT (PYXIS) 30 ML UDC PO SCH ×2 (08:22→12:05)
[2023-04-19 08:39] VITALS: BP 134/80; TEMP 97.7; O2SAT 97
[2023-04-19] MEDS ORDERED: TERA2CAP4 PO (10:05)
[2023-04-19] MEDS ORDERED: CEPH500C2 PO (10:05)
[2023-04-19] MEDS: DAKINS QUARTER STRENGTH (0.125%) 480 ML BOTTLE TOP SCH (11:58)
[2023-04-19] MEDS: HYDROCODONE/APAP 5/325MG TABLET PO PRN (12:05)
[2023-04-19 16:04] VITALS: BP 83/54; TEMP 98.2; O2SAT 99
== END 2023-04-19 17:35 | disposition home health service (06) | DRG 682 ==
LOC: ER 21:42 → TELE 04-16 01:50 → MED 04-18 05:56
PROVIDERS: ADMIT Nurse Practitioner Acute Care; ATTEND Nurse Practitioner Family
PROC: 0KBP3ZZ Excision of Left Hip Muscle, Percutaneous Approach (ICD-10-PCS; principal; 2023-04-16)
PROC: 0KBN3ZZ Excision of Right Hip Muscle, Percutaneous Approach (ICD-10-PCS; 2023-04-16)
PROC: 0T9B70Z Drainage of Bladder with Drainage Device, Via Natural or Artificial Opening (ICD-10-PCS; 2023-04-16)
DX: N17.8 Other acute kidney failure (principal); L89.154 Pressure ulcer of sacral region, stage 4; N13.8 Other obstructive and reflux uropathy; N39.0 Urinary tract infection, site not specified; E87.1 Hypo-osmolality and hyponatremia; N40.1 Benign prostatic hyperplasia with lower urinary tract symptoms; R33.8 Other retention of urine; B96.89 Other specified bacterial agents as the cause of diseases classified elsewhere; R31.9 Hematuria, unspecified; E87.5 Hyperkalemia; J44.9 Chronic obstructive pulmonary disease, unspecified; E11.9 Type 2 diabetes mellitus without complications; I10 Essential (primary) hypertension; D64.9 Anemia, unspecified
CPT/HCPCS: 36415; 76770-TC; 80048-TC; 80061-TC; 81001; 82962-TC; 83735-TC; 84100-TC; 84443-TC; 85025-TC; 87086-TC; 93970-TC; A4223; A6253; A6403; G0378; J0696; J1815; J1940; J3490; J7030; J7060

== ENCOUNTER 2023-05-12 01:35 | Emergency (ER) | payer SELFPAY ==
[~2023-05-12] VITALS: Ht 177.8 cm; Wt 70.3 kg
[~2023-05-12 01:35] MED LIST changes: +ALBU18HF2 IH; +ASPI-1169 PO; +CEPH500C2 PO; +FLUT1DIS3 IH; -GLIP5TAB13 PO; +LISI-768 PO; +NICO-676 TD; +TAMS-12 PO; +TERA2CAP4 PO; -TIOT18CA3 IH
[2023-05-12 01:44] VITALS: BP 113/60; TEMP 98.8
[2023-05-12 02:01] VITALS: O2SAT 95
[2023-05-13] MEDS ORDERED: TAMS-12 PO (13:38)
== END 2023-05-12 02:01 | disposition home or self-care (01) ==
LOC: ER 01:40
DX: T83.091A Other mechanical complication of indwelling urethral catheter, initial encounter (principal); I10 Essential (primary) hypertension; E11.9 Type 2 diabetes mellitus without complications; J44.9 Chronic obstructive pulmonary disease, unspecified; Z79.84 Long term (current) use of oral hypoglycemic drugs; Z79.899 Other long term (current) drug therapy

== ENCOUNTER 2023-05-13 13:00 | Emergency (ER) | payer SELFPAY ==
[~2023-05-13] VITALS: Ht 177.8 cm; Wt 70.3 kg
[2023-05-13 13:21] VITALS: BP 101/60; TEMP 98.2
[2023-05-13] MEDS ORDERED: TAMS-12 PO (13:38)
[2023-05-13 13:48] VITALS: O2SAT 100
== END 2023-05-13 13:50 | disposition home or self-care (01) ==
LOC: ER 13:00
DX: T83.091A Other mechanical complication of indwelling urethral catheter, initial encounter (principal); D29.1 Benign neoplasm of prostate; I10 Essential (primary) hypertension; J44.9 Chronic obstructive pulmonary disease, unspecified; E11.9 Type 2 diabetes mellitus without complications; Z79.84 Long term (current) use of oral hypoglycemic drugs; Z79.899 Other long term (current) drug therapy

== ENCOUNTER 2023-05-27 06:33 | Emergency (ER) | payer MEDICAID ==
[~2023-05-27] VITALS: Ht 175.3 cm; Wt 68.0 kg
[2023-05-27 07:49] VITALS: BP 112/70; TEMP 98.1; O2SAT 100
[2023-05-27] MEDS ORDERED: TERA2CAP4 PO (08:44)
== END 2023-05-27 08:51 | disposition home or self-care (01) ==
LOC: ER 06:38
DX: T83.091A Other mechanical complication of indwelling urethral catheter, initial encounter (principal); I10 Essential (primary) hypertension; J44.9 Chronic obstructive pulmonary disease, unspecified; E11.9 Type 2 diabetes mellitus without complications; Z79.899 Other long term (current) drug therapy

== ENCOUNTER 2023-06-14 10:47 | Emergency (ER) | payer MEDICAID ==
[~2023-06-14] VITALS: Ht 177.8 cm; Wt 68.0 kg
[2023-06-14 10:58] VITALS: BP 130/56; TEMP 98.1; O2SAT 100
[2023-06-14] MEDS ORDERED: TERA2CAP4 PO (11:34)
[2023-06-14] MEDS ORDERED: SIMV-46 PO (11:34)
[2023-06-14] MEDS ORDERED: TAMS-12 PO (11:34)
== END 2023-06-14 11:55 | disposition home or self-care (01) ==
LOC: ER 10:50
DX: N40.0 Benign prostatic hyperplasia without lower urinary tract symptoms (principal); I10 Essential (primary) hypertension; J44.9 Chronic obstructive pulmonary disease, unspecified; E11.9 Type 2 diabetes mellitus without complications; Z79.899 Other long term (current) drug therapy; Z79.84 Long term (current) use of oral hypoglycemic drugs

== ENCOUNTER 2023-06-18 07:26 | Emergency (ER) | payer MEDICAID, MEDICARE ==
[~2023-06-18] VITALS: Ht 177.8 cm; Wt 68.0 kg
[~2023-06-18 07:26] MED LIST changes: +SIMV-46 PO
[2023-06-18 08:00] VITALS: BP 180/101; TEMP 98.2; O2SAT 92
[2023-06-18 08:40] LABS: APPEARANCE,URINE TURBID (CLEAR); BILIRUBIN,URINE NEGATIVE (NEGATIVE); BLOOD, URINE 2+ Ery/uL (NEGATIVE); COLOR,URINE YELLOW (YELLOW); KETONES,URINE NEGATIVE (NEGATIVE); LEUKOCYTE ESTERASE ,URINE 3+ (NEGATIVE); NITRITE, URINE NEGATIVE (NEGATIVE); PH,URINE 6.5 (5.0-8.0); PROTEIN,URINE 2+ mg/dl (NEGATIVE); UGLUCOSE NEGATIVE (NEGATIVE)
[2023-06-18 09:01] LABS: ADD URINE CULTURE YES; BACTERIA,URINE Few /HPF (None Seen); SQUAMOUS EPITHELIAL CELL,UR Few /HPF (None Seen); WBC,URINE TOO NUMEROUS TO COUN /HPF (0-3)
[2023-06-18] MEDS ORDERED: CEPH500C2 PO (09:20)
[2023-06-18] MEDS ORDERED: IBUP-1955 PO (09:20)
== END 2023-06-18 09:30 | disposition home or self-care (01) ==
LOC: ER 07:34
DX: N39.0 Urinary tract infection, site not specified (principal); I10 Essential (primary) hypertension; J44.9 Chronic obstructive pulmonary disease, unspecified; N40.0 Benign prostatic hyperplasia without lower urinary tract symptoms; E11.9 Type 2 diabetes mellitus without complications; Z79.899 Other long term (current) drug therapy; Z79.82 Long term (current) use of aspirin
CPT/HCPCS: 81001; 87086-TC

== ENCOUNTER 2025-05-08 13:44 | Emergency (ER) | payer MEDICAID, MEDICARE ==
[~2025-05-08] VITALS: Ht 177.8 cm; Wt 63.5 kg
[~2025-05-08 13:44] MED LIST changes: +IBUP-1955 PO
[2025-05-08] MEDS ORDERED: TAMS-12 PO (14:50)
[2025-05-08] MEDS ORDERED: TAMSULOSIN 0.4 MG CAP.SR.24H ONE (14:55)
[2025-05-08] MEDS: TAMSULOSIN 0.4 MG CAP.SR.24H PO STA (14:57)
[2025-05-08] MEDS: TAMSULOSIN 0.4 MG CAP.SR.24H PO ONE (14:59)
[2025-05-08 15:30] VITALS: BP 132/89; TEMP 98.2; O2SAT 97
== END 2025-05-08 15:31 | disposition home or self-care (01) ==
LOC: ER 13:48
DX: R33.9 Retention of urine, unspecified (principal); Z76.0 Encounter for issue of repeat prescription; I10 Essential (primary) hypertension; E11.9 Type 2 diabetes mellitus without complications; J44.9 Chronic obstructive pulmonary disease, unspecified; N40.1 Benign prostatic hyperplasia with lower urinary tract symptoms; Z79.51 Long term (current) use of inhaled steroids; Z79.82 Long term (current) use of aspirin; Z79.84 Long term (current) use of oral hypoglycemic drugs; Z79.899 Other long term (current) drug therapy